=== PATIENT | female | born 2000 | race Two or more races ===

== ENCOUNTER 2025-03-23 13:48 | Inpatient (IN) | payer OTHER ==
[~2025-03-23] VITALS: Ht 162.6 cm; Wt 56.0 kg
[2025-03-23 14:15] VITALS: PULSE 84; RESP 10; O2SAT 99
[2025-03-23] MEDS: SODIUM CHLORIDE 0.9% 1,000 ML IV ONE ×2 (14:15→17:09)
[2025-03-23] MEDS: NALOXONE HCL 0.4 MG/ML VIAL ONE (14:16)
[2025-03-23] MEDS: NALOXONE HCL 1MG/ML 2ML SYRINGE ONE (14:19)
--- NOTE | 2025-03-23 14:26 | ED.PDOC ---
History of Present Illness HPI Comments Patient is a 24-year-old female with medical history of anxiety, depression, PTSD as reported by her spouse was brought to the ED after reported overdose. Patient's spouse reports she left home last night and turned around 9-10 a.m. in the morning and was confused. Patient reports to have taken multiple pills of Zoloft and Christoval. She was confused, lethargic and was brought to the ED for further evaluation. Patient denied any headache, abdominal pain, nausea vomiting, shortness of breath, palpitations. Attestation note: Dr. Caldera: I was the supervising attending for this ED encounter. Please see the resident's notes. I have personally seen and evaluated this patient. I was available for questions and consultations. Differential diagnosis: DDX include CVA, TGA, cerebellar ischemia/infarct, carotid stenosis, Intracranial mass/infection/bleed, encephalopathy, electrolyte abnormality, thyroid disease, hydrocephalus, hypoglycemia, drug toxicity, cardiac arrhythmia, seizure, infection in the elderly, Hyperammonemia., kidney failure., sepsis. MDM: MDM: patient presented with the above HPI.---altered level of consciousness---workup was initiated. patient was found with the above mentioned diagnosis. the following medications were ordered: please refer to order lists of meds and tests obtained by myself Dr. Caldera. Patient ED course and VS have been stabilized. Patient has been reassessed in the ED and remained in a stable condition. Pertinent incidental findings were discussed with the patient and/or family. Patient/family voices understanding and is agreeable with plan. Patient has been observed in the ED adequate length of time to insure improvement/stability. Escalation of care considered: Consideration of escalation to observation or admission Patient was ADMITTED to the medicine team for further evaluation and treatment of their presentation. All the reports of any imaging studies that were ordered by myself were reviewed by myself. Chief Complaint: Ingestion Time Seen by MD: 14:19 Allergies: Coded Allergies: NO KNOWN ALLERGIES (Unverified , 03/23/25) Past Medical History PAST MEDICAL HISTORY: Anxiety, Depression Surgical History: Denies all surgeries DIRECTOR FUNDS DEVELOPMENT History: Denies all DIRECTOR FUNDS DEVELOPMENT Hx Family History Family History: Reviewed,noncontributory to illness Social History Smoker: Unknown Alcohol: Unknown Drugs: Unknown Lives In: Home Constitutional: reports: fatigue EENTM: reports: blurred vision Respiratory: denies: cough, hemoptysis, orthopnea, SOB at rest, shortness of breath, SOB with excertion, stridor, wheezing, others Cardiovascular: denies: chest pain, dizzy spells, diaphoresis, Dyspnea on exertion, edema, irregular heart beat, left arm pain, lightheadedness, palpit ations, PND, syncope, others Gastrointestinal: denies: abdomen distended, abdominal pain, blood streaked b owels, constipated, diarrhea, dysphagia, difficulty swallowing, hematemesis, melena, nausea, poor appetite, poor fluid intake, rectal bleeding, rectal pain, vomiting, others Genitourinary: denies: abnormal vagina bleeding, burning, dyspareunia, dysuria, flank pain, frequency, hematuria, incontinence, pain, , vagina discharge, urgency, others Neurological: denies: dizziness, fainting, headache, left sided numbness, left sided weakness, numbness, paresthesia, pre-existing deficit, right sided numbness, right sided weakness, seizure, speech problems, tingling, tremors, weakness, others Musculoskeletal: denies: back pain, gout, joint pain, joint swelling, muscle pain, muscle stiffness, neck pain, others Integumetry: denies: bruises, change in color, change in hair/nails, dryness, laceration, lesions, lumps, rash, wounds, others Allergic/Immunocompromised: denies: Difficulty Healing, Frequent Infections, Hives, Itching, others Hematologic/Lymphatic: denies: anemia, blood clots, easy bleeding, easy brui sing, swollen glands, others Endocrine: denies: excessive hunger, excessive sweating, excessive thirst, ex cessive urination, flushing, intolerance to cold, intolerance to heat, unexplained weight gain, unexplained weight loss, others Psychiatric: denies: anxiety, bipolar disorder, depression, hopeless, panic disorder, schizophrenia, sleepless, suicidal, others Physical Exam General Appearance: Mild Distress, Thin HEENT: PERRL/EOMI Neck: Full Range of Motion, Non-Tender, Normal Inspection Respiratory: No Accessory Muscle Use, No Respiratory Distress, Normal Breath Sounds Cardiovascular: Bradycardia, No Edema, No JVD, No Murmur Breast Exam: Deferred Gastrointestinal: No Organomegaly, Non Tender, No Pulsatile Mass, Normal Bowel Sounds Genitalia: Deferred Pelvic: Deferred Rectal: Deferred Extremities: Normal inspection, Normal range of motion, Non-tender Neurologic: Alert, No Motor Deficits, No Sensory Deficits Cerebellar Function: Normal Reflexes: NOT DONE Skin: Dry, Pallor Peripheral Pulses: 2+ dorsalis pedis (R); 1+ dorsalis pedis (L); 2+ Radial (R); 1+ Radial (L) Lymphatic: No Adenopathy Was a procedure done? Was a procedure done?: No Differential Dx Considerations may include: drug overdose, toxic encephalopathy X-Ray, Labs, Meds, VS Vital Signs Date Time Temp Pulse Resp B/P (MAP) Pulse Ox O2 Delivery O2 Flow Rate FiO2 03/23/25 16:00 63 10 98/58 (71) 99 03/23/25 14:48 97.6 102 12 153/78 (103) 97 97.6 03/23/25 14:15 84 10 99 Room Air* 0 21 03/23/25 14:14 58 10 92/63 (73) 97 Lab Test 03/23/25 14:45 03/23/25 14:21 Range/Units Urine Color Yellow Yellow Urine Clarity Turbid H Clear Urine pH 6.0 5.0-9.0 Urine Specific Tracy 1.032 1.001-1.035 Urine Protein 1+ H Negative Urine Ketones Negative Negative Urine Blood 3+ H Negative /uL Urine Nitrite Negative Negative Urine Bilirubin Negative Negative Urine Urobilinogen 3 H Negative mg/dL Urine Leukocyte Esterase Trace Negative /uL Urine RBC 476 0 - 4 /hpf Urine Microscopic WBC 2 0-5 /HPF Urine Squamous Epithelial Cells Few <5 /hpf Urine Bacteria Few H None Seen /hpf Urine Mucus Few None Seen Urine Yeast (Budding) Occasional None Seen /hpf Urine Glucose Normal Normal mg/dL Urine Test Negative Negative Urine Opiates Screen Pos NEGATIVE Urine Fentanyl Screen Neg NEGATIVE Urine Barbiturates Screen Neg NEGATIVE Urine Phencyclidine Screen Neg NEGATIVE Urine Amphetamines Screen Neg NEGATIVE Urine Benzodiazepines Screen Pos NEGATIVE Urine Cocaine Screen Pos NEGATIVE Urine Cannabinoids Screen Neg NEGATIVE White Blood Count 6.9 4.4-10.8 10^3/uL Red Blood Count 4.76 4.0-5.20 10^6/uL Hemoglobin 13.2 12.2-16.2 g/dL Hematocrit 40.0 36.0-46.0 % Mean Corpuscular Volume 83.9 80.0-100.0 fL Mean Corpuscular Hemoglobin 27.8 L 28.0-32.0 pg Mean Corpuscular Hemoglobin Concent 33.1 32.0-36.0 g/dL Red Cell Distribution Width 14.1 11.8-14.3 % Platelet Count 208 140-450 10^3/uL Mean Platelet Volume 7.5 6.9-10.8 fL Neutrophils (%) (Auto) 52.8 37.0-80.0 % Lymphocytes (%) (Auto) 35.7 10.0-50.0 % Monocytes (%) (Auto) 8.6 0.0-12.0 % Eosinophils (%) (Auto) 2.6 0.0-7.0 % Basophils (%) (Auto) 0.3 0.0-2.0 % Neutrophils # (Auto) 3.7 1.6-8.6 10 ^3/uL Lymphocytes # (Auto) 2.5 0.4-5.4 10 ^3/uL Monocytes # (Auto) 0.6 0-1.3 10 ^3/uL Eosinophils # (Auto) 0.2 0-0.8 10 ^3/uL Basophils # (Auto) 0 0-0.2 10 ^3/uL Nucleated Red Blood Cells 0.0 % Sodium Level 141 136-145 mmol/L Potassium Level 3.9 3.5-5.1 mmol/L Chloride Level 108 H 98-107 mmol/L Carbon Dioxide Level 27 20-31 mmol/L Anion Gap 6 5-15 Blood Urea Nitrogen 9 9-23 mg/dL Creatinine 0.77 0.550-1.02 mg/dL Glomerular Filtration Rate Calc 109 >90 mL/min BUN/Creatinine Ratio 11.7 10.0-20.0 Serum Glucose 83 74-106 mg/dL Lactic Acid Level 0.9 0.4-2.0 mmol/L Calcium Level 9.8 8.7-10.4 mg/dL Magnesium Level 2.0 1.6-2.6 mg/dL Total Bilirubin 0.3 0.2-1.0 mg/dL Aspartate Amino Transferase (AST) 22 13-40 U/L Alanine Aminotransferase (ALT) 12 7-40 U/L Alkaline Phosphatase 60 46-116 U/L Troponin I High Sensitivity < 3 L </=34 ng/L Total Protein 6.5 5.7-8.2 g/dL Albumin 4.4 3.2-4.8 g/dL Acetaminophen Level 4.0 L 10.0-20.0 UG/ML Eulonia Level Pending Plasma/Serum Blood Alcohol < 3.0 <10 mg/dL Current Medications Medications (Trade) Dose Ordered Sig/Daniel Route Start Time Stop Time Status Last Admin Sodium Chloride 1,000 ml @ 1,000 mls/hr Q1H ONCE IV 03/23/25 14:15 03/23/25 15:20 DC 03/23/25 14:15 Naloxone HCl (Narcan) 2 mg ONCE ONCE IV 03/23/25 14:19 03/23/25 15:20 DC 03/23/25 16:11 Ceftriaxone Sodium 50 ml @ 100 mls/hr ONCE ONCE IV 03/23/25 17:00 03/23/25 17:29 DC 03/23/25 17:23 Sodium Chloride 1,000 ml @ 1,000 mls/hr Q1H ONCE IV 03/23/25 17:00 03/23/25 17:59 DC 03/23/25 17:09 Patient is a 24-year-old female was brought to the ED by her spouse after she was confused and lethargic. Her spouse reported that last night they had argument and she went out and return in the morning in altered mental status. Patient reportedly took multiple pills of a medication, bottle of hydroxyzine was brought on seen by her spouse. Urine drug screen was positive for cocaine, opiates, benzodiazepines. Blood alcohol level were within normal limits. Head CT did not show any acute intracranial abnormality, chest x-ray was normal. On arrival to the ER patient's GCS was 13 and she was given 1 L of IV fluids and put on a conveyor monitor that showed sinus bradycardia 50-60 beats per minute. Patient was lethargic and somnolent. Spouse denied patient to be taking any drugs regularly. Patient is on lithium for mood stabilisation for her mood disoder but she adamantly denied to overdose on lithium. X-Ray, Labs, Meds, VS Comment [address] [address] Ph: [phone] DIAGNOSTIC IMAGING Diagnostic Imaging Report : [id number] Signed PATIENT: NICK SIDDIQIACCT: [id number] UNIT: [id number] : 2000 LOC: ER ROOM / BED: / AGE / SEX: 24 / F ADM STATUS: REG ER SERVICE 1506 ORDERING PHYSICIAN: LEXA HUITRON RESIDENT PROCEDURE(s): HWOCT - HEAD WITHOUT CONTRAST REASON: ALOC ORDER NUMBER(s): [id number], ACCESSION NUMBER(s): [id number] EXAM: CT HEAD WITHOUT CONTRAST HISTORY: ALOC COMPARISON: None TECHNIQUE: Noncontrast axial CT images of the head were performed. Sagittal and coronal reformatted images were obtained. This CT exam was performed using 1 or more of the following dose reduction techniques: Automated exposure control, adjustment of the mA and/or kv according to patient size, or the use of iterative reconstruction techniques. Radiation Dose: CTDI volume is 53.44 mGy. Dose-length product is 965.35 mGy*cm FINDINGS: No intracranial hemorrhage, mass, midline shift, hydrocephalus, or evidence of acute large vessel infarct. The partially-visualized paranasal sinuses are clear. The bilateral mastoid air cells and middle ear spaces are clear. No cranial fracture or scalp edema. IMPRESSION: No acute intracranial process. ATED BY: BRUNO FORD MD DICTATED DATE/TIME: 03/23/251546 SIGNED BY: BRUNO FORD MD SIGNED DATE/TIME: 03/23/251546 CC: Time of 1ST Reevaluation: 17:12 Reevaluation 1ST: Unchanged Patient Education/Counseling: Diagnosis, Treatment Family Education/Counseling: Diagnosis, Treatment SEPSIS Sepsis Screen Physician Orders Music Manager (03/23/25 ) Chest Portable (03/23/25 14:15) Electrocardigram (03/23/25 14:15) Head Without Contrast (03/23/25 15:06) * Station Installer And Repairer Consult (03/23/25 ) Eulonia (Eskalith) (03/23/25 17:35) Vital Signs Date Time Temp Pulse Resp B/P (MAP) Pulse Ox O2 Delivery O2 Flow Rate FiO2 03/23/25 16:00 63 10 98/58 (71) 99 03/23/25 14:48 97.6 102 12 153/78 (103) 97 97.6 03/23/25 14:15 84 10 99 Room Air* 0 21 03/23/25 14:14 58 10 92/63 (73) 97 Laboratory Tests Test 03/23/25 14:21 Lactic Acid Level 0.9 mmol/L (0.4-2.0) White Blood Count 6.9 10^3/uL (4.4-10.8) Medications Medications Dose Ordered Sig/Daniel Route Start Time Stop Time Status Last Admin Dose Admin Ceftriaxone Sodium 50 ml @ 100 mls/hr ONCE ONCE IV 03/23/25 17:00 03/23/25 17:29 DC 03/23/25 17:23 Naloxone HCl 2 mg ONCE ONCE IV 03/23/25 14:19 03/23/25 15:20 DC 03/23/25 16:11 Sodium Chloride 1,000 ml @ 1,000 mls/hr Q1H ONCE IV 03/23/25 14:15 03/23/25 15:20 DC 03/23/25 14:15 Sodium Chloride 1,000 ml @ 1,000 mls/hr Q1H ONCE IV 03/23/25 17:00 03/23/25 17:59 DC 03/23/25 17:09 Departure 1 Departure Time of Disposition: 16:35 Impression: Primary Impression: Toxic metabolic encephalopathy Additional Impressions: Drug overdose Polysubstance abuse Cocaine abuse UTI (urinary tract infection) Altered level of consciousness Disposition: ADMITTED INPATIENT Admit to: [facility] Condition: Guarded Discharged With: Self Critical Care Note Critical Care Time?: No Stability Stability form required: No Heart Score Heart Score: Heart Score Response (Comments) Value History N/A 0 EKG N/A 0 Age N/A 0 Risk Factors N/A 0 Troponin N/A 0 Total 0 LEXA HUITRON RESIDENT Mar 23, 2025 14:26 JOANNE CALDERA DO Mar 23, 2025 16:53
[2025-03-23 14:39] LABS: Hematocrit 40.0 % (36.0-46.0); Hemoglobin 13.2 g/dL (12.2-16.2); Mean Corpuscular Hemoglobin 27.8 pg (28.0-32.0); Mean Corpuscular Volume 83.9 fL (80.0-100.0); Nucleated Red Blood Cells % 0.0 %
[2025-03-23 14:56] LABS: Alanine Aminotransferase 12 U/L (7-40); Albumin 4.4 g/dL (3.2-4.8); Alkaline Phosphatase 60 U/L (46-116); Anion Gap 6 (5-15); BUN/Creatinine Ratio 11.7 (10.0-20.0); Bilirubin, Total 0.3 mg/dL (0.2-1.0); Blood Urea Nitrogen 9 mg/dL (9-23); Calcium 9.8 mg/dL (8.7-10.4); Carbon Dioxide 27 mmol/L (20-31); Chloride 108 mmol/L (98-107); Glucose 83 mg/dL (74-106); Magnesium 2.0 mg/dL (1.6-2.6); Potassium 3.9 mmol/L (3.5-5.1); Sodium 141 mmol/L (136-145); Total Protein 6.5 g/dL (5.7-8.2)
[2025-03-23 15:08] LABS: Urine Budding Yeast OCCASIONAL /hpf (None Seen); Urine Protein, UAD 1+ (Negative)
[2025-03-23 15:17] LABS: Amphetamine Screen, Urine Neg (NEGATIVE); Barbiturate Scree,Urine Neg (NEGATIVE); Benzodiazephine Screen, Urine Pos (NEGATIVE)
[2025-03-23 15:18] LABS: Cannabinoid Screen, Urine Neg (NEGATIVE); Cocaine Screen, Urine Pos (NEGATIVE); Opiate Scree,Urine Pos (NEGATIVE); Phencyclidine Screen, Urine Neg (NEGATIVE)
--- NOTE | 2025-03-23 15:44 | DVH ---
EXAM: XY CHEST PORTABLE HISTORY: overdose, altered. COMPARISON: None TECHNIQUE: Portable upright AP view of the chest was performed. FINDINGS: No pneumothorax, consolidative infiltrates, or pulmonary edema. The heart is not enlarged. Tubing ove rlies the left chest, possibly due to HELICOPTER MECHANIC shunt catheter. There is slight thoracic levoscoliosis. IMPRESSION: No acute intrathoracic process.
--- NOTE | 2025-03-23 15:50 | DVH ---
EXAM: CT HEAD WITHOUT CONTRAST HISTORY: ALOC COMPARISON: None TECHNIQUE: Noncontrast axial CT images of the head were performed. Sagittal and coronal reformatted i mages were obtained. This CT exam was performed using 1 or more of the following dose reduction techn iques: Automated exposure control, adjustment of the mA and/or kv according to patient size, or the u se of iterative reconstruction techniques. Radiation Dose: CTDI volume is 53.44 mGy. Dose-length product is 965.35 mGy*cm FINDINGS: No intracranial hemorrhage, mass, midline shift, hydrocephalus, or evidence of acute large vessel inf arct. The partially-visualized paranasal sinuses are clear. The bilateral mastoid air cells and middl e ear spaces are clear. No cranial fracture or scalp edema. IMPRESSION: No acute intracranial process.
[2025-03-23] MEDS: NALOXONE HCL 1MG/ML 2ML SYRINGE IV ONE ×2 (16:11→18:48)
[2025-03-23] MEDS: cefTRIAXone 1GM/50ML D5W 50 ML IV ONE (17:23)
[2025-03-23] MEDS ORDERED: ACETAMINOPHEN 325 MG TAB PO PRN (20:30)
[2025-03-23] MEDS ORDERED: DOCUSATE SOD 100 MG CAP PO PRN (20:30)
[2025-03-23] MEDS ORDERED: ONDANSETRON HCL 4 MG/2 ML VIAL IV PRN (20:30)
--- NOTE | 2025-03-23 20:49 | DVHHP2 ---
History of Present Illness Reason for Visit: Toxic metabolic encephalopathy History of Present Illness The patient is a 24-year-old female with past medical history of anxiety, depression, and PTSD who presented to [facility] ED for evaluation of drug overdose. Patient reports to have taken multiple pills of Zoloft and [place], remains confused, lethargic and was brought to the ED for further evaluation. Patient was seen and evaluated in the ED, laboratory data shows WBC 6.9, platelets 208, sodium 141, potassium 3.9, BUN 9, creatinine 0.77, glucose 83, calcium 9.8, troponin < 3, blood pressure 99/54, heart rate 62, temperature 98.6 F, O2 saturation 98% on room air. Urinalysis positive for urinary tract infection, urine toxicology positive for opiates, positive for cocaine. Head CT showed no acute intracranial process. Please see medication orders section in the computer. On my assessment, patient denied chest pain, no headache, no dizziness, no diaphoresis, no shortness of breath, no nausea, no vomiting, no fever, no chills. Patient was admitted for further evaluation and medical management. Past Medical History Anxiety, Depression, PTSD Past Surgical History Denies all surgeries Family History Reviewed, noncontributory to the management of this case. Past Social History The patient lives at home, denies smoking, alcohol or illicit drugs abuse. Review of Systems Constitutional: Yes: Weakness; No: Fever, Chills, Sweats, Malaise, Other Eyes: No: Pain, Vision change, Conjunctivae inflammation, Eyelid inflammation, Other, Redness ENT: No: Ear pain, Ear discharge, Nose pain, Nose discharge, Nose congestion, Mouth pain, Mouth swelling, Throat pain, Throat swelling, Other Respiratory: No: Cough, Dry, Shortness of breath, SOB with excertion, Wheezing, Hemoptysis, Pleuritic Pain, Sputum, Wheezing, Other Cardiovascular: No: Chest Pain, Palpitations, Orthopnea, Paroxysmal Noc. Dyspnea, Edema, Lt Headedness, Other Gastrointestinal: No: Nausea, Vomiting, Abdominal Pain, Diarrhea, Constipation, Melena, Hematochezia, Other Genitourinary: No Dysuria, No Frequency, No Incontinence, No Hematuria, No Retention, No Other Musculoskeletal: No: other, neck pain, shoulder pain, arm pain, back pain, hand pain, leg pain, foot pain Skin: No: Rash, Lesions, Jaundice, Bruising, Other Neurological: No: Weakness, Numbness, Incoordination, Change in speech, Confusion, Seizures, Other Allergies: Coded Allergies: NO KNOWN ALLERGIES (Unverified , 03/23/25) Medications Current Medications Medications Dose Ordered Sig/Daniel Route Start Time Stop Time Status Last Admin Dose Admin Ceftriaxone Sodium 50 ml @ 100 mls/hr DAILY@09 IV 03/24/25 09:00 UNV Sodium Chloride 10 ml Q8HR IV 03/23/25 22:00 UNV Ondansetron HCl 4 mg Q4HP PRN IV 03/23/25 20:30 UNV Docusate Sodium 100 mg BIDPRN PRN PO 03/23/25 20:30 UNV Acetaminophen 650 mg Q6HP PRN PO 03/23/25 20:30 UNV Exam Vital Signs Vital Signs Date Time Temp Pulse Resp B/P (MAP) Pulse Ox O2 Delivery O2 Flow Rate FiO2 03/23/25 18:00 98.6 61 10 99/54 (69) 98 98.6 03/23/25 14:15 Room Air* 0 21 General Appearance: Alert, Oriented X3, Cooperative, No acute distress HEENT: Atraumatic, PERRLA, EOMI, Mucous membr. moist/pink Respiratory: Normal air movement Cardiovascular: Regular rate, Normal S1, Normal S2, No murmurs Abdominal: Normal bowel sounds, Soft, No tenderness, No hepatospenomegaly, No masses Extremities: No clubbing, No cyanosis, No edema, Normal pulses, No tenderness/swelling Skin: No rashes, No significant lesion Neuro: Normal speech, Normal tone, Sensation intact, Cranial nerves 3-12 NL, Reflexes 2+, Other (RN) Psych/Mental Status: Mental status NL, Mood NL Labs/Xrays Labs Test 03/23/25 14:45 03/23/25 14:21 Range/Units Urine Color Yellow Yellow Urine Clarity Turbid H Clear Urine pH 6.0 5.0-9.0 Urine Specific [place] 1.032 1.001-1.035 Urine Protein 1+ H Negative Urine Ketones Negative Negative Urine Blood 3+ H Negative /uL Urine Nitrite Negative Negative Urine Bilirubin Negative Negative Urine Urobilinogen 3 H Negative mg/dL Urine Leukocyte Esterase Trace Negative /uL Urine RBC 476 0 - 4 /hpf Urine Microscopic WBC 2 0-5 /HPF Urine Squamous Epithelial Cells Few <5 /hpf Urine Bacteria Few H None Seen /hpf Urine Mucus Few None Seen Urine Yeast (Budding) Occasional None Seen /hpf Urine Glucose Normal Normal mg/dL Urine Test Negative Negative Urine Opiates Screen Pos NEGATIVE Urine Fentanyl Screen Neg NEGATIVE Urine Barbiturates Screen Neg NEGATIVE Urine Phencyclidine Screen Neg NEGATIVE Urine Amphetamines Screen Neg NEGATIVE Urine Benzodiazepines Screen Pos NEGATIVE Urine Cocaine Screen Pos NEGATIVE Urine Cannabinoids Screen Neg NEGATIVE White Blood Count 6.9 4.4-10.8 10^3/uL Red Blood Count 4.76 4.0-5.20 10^6/uL Hemoglobin 13.2 12.2-16.2 g/dL Hematocrit 40.0 36.0-46.0 % Mean Corpuscular Volume 83.9 80.0-100.0 fL Mean Corpuscular Hemoglobin 27.8 L 28.0-32.0 pg Mean Corpuscular Hemoglobin Concent 33.1 32.0-36.0 g/dL Red Cell Distribution Width 14.1 11.8-14.3 % Platelet Count 208 140-450 10^3/uL Mean Platelet Volume 7.5 6.9-10.8 fL Neutrophils (%) (Auto) 52.8 37.0-80.0 % Lymphocytes (%) (Auto) 35.7 10.0-50.0 % Monocytes (%) (Auto) 8.6 0.0-12.0 % Eosinophils (%) (Auto) 2.6 0.0-7.0 % Basophils (%) (Auto) 0.3 0.0-2.0 % Neutrophils # (Auto) 3.7 1.6-8.6 10 ^3/uL Lymphocytes # (Auto) 2.5 0.4-5.4 10 ^3/uL Monocytes # (Auto) 0.6 0-1.3 10 ^3/uL Eosinophils # (Auto) 0.2 0-0.8 10 ^3/uL Basophils # (Auto) 0 0-0.2 10 ^3/uL Nucleated Red Blood Cells 0.0 % Sodium Level 141 136-145 mmol/L Potassium Level 3.9 3.5-5.1 mmol/L Chloride Level 108 H 98-107 mmol/L Carbon Dioxide Level 27 20-31 mmol/L Anion Gap 6 5-15 Blood Urea Nitrogen 9 9-23 mg/dL Creatinine 0.77 0.550-1.02 mg/dL Glomerular Filtration Rate Calc 109 >90 mL/min BUN/Creatinine Ratio 11.7 10.0-20.0 Serum Glucose 83 74-106 mg/dL Lactic Acid Level 0.9 0.4-2.0 mmol/L Calcium Level 9.8 8.7-10.4 mg/dL Magnesium Level 2.0 1.6-2.6 mg/dL Total Bilirubin 0.3 0.2-1.0 mg/dL Aspartate Amino Transferase (AST) 22 13-40 U/L Alanine Aminotransferase (ALT) 12 7-40 U/L Alkaline Phosphatase 60 46-116 U/L Troponin I High Sensitivity < 3 L </=34 ng/L Total Protein 6.5 5.7-8.2 g/dL Albumin 4.4 3.2-4.8 g/dL Acetaminophen Level 4.0 L 10.0-20.0 UG/ML Plasma/Serum Blood Alcohol < 3.0 <10 mg/dL PATIENT: NICK SIDDIQIACCT: [id number] UNIT: [id number] : 2000 LOC: ER ROOM / BED: / AGE / SEX: 24 / F ADM STATUS: REG ER SERVICE 1506 ORDERING PHYSICIAN: LEXA HUITRON RESIDENT PROCEDURE(s): HWOCT - HEAD WITHOUT CONTRAST REASON: ALOC ORDER NUMBER(s): [id number], ACCESSION NUMBER(s): [id number] EXAM: CT HEAD WITHOUT CONTRAST HISTORY: ALOC COMPARISON: None TECHNIQUE: Noncontrast axial CT images of the head were performed. Sagittal and coronal reformatted images were obtained. This CT exam was performed using 1 or more of the following dose reduction techniques: Automated exposure control, adjustment of the mA and/or kv according to patient size, or the use of iterative reconstruction techniques. Radiation Dose: CTDI volume is 53.44 mGy. Dose-length product is 965.35 mGy*cm FINDINGS: No intracranial hemorrhage, mass, midline shift, hydrocephalus, or evidence of acute large vessel infarct. The partially-visualized paranasal sinuses are clear. The bilateral mastoid air cells and middle ear spaces are clear. No cranial fracture or scalp edema. IMPRESSION: No acute intracranial process. ORDERING PHYSICIAN: JOANNE CALDERA DO PROCEDURE(s): CXRP - CHEST PORTABLE REASON: overdose, altered. ORDER NUMBER(s): [id number], ACCESSION NUMBER(s): [id number] EXAM: XY CHEST PORTABLE HISTORY: overdose, altered. COMPARISON: None TECHNIQUE: Portable upright AP view of the chest was performed. FINDINGS: No pneumothorax, consolidative infiltrates, or pulmonary edema. The heart is not enlarged. Tubing overlies the left chest, possibly due to GRIP shunt catheter. There is slight thoracic levoscoliosis. IMPRESSION: No acute intrathoracic process. SEPSIS Sepsis Screen Date sepsis recognized/suspect: Mar 23, 2025 Time Sepsis recognized/suspect: 1414 Recent Procedure: No On Antibiotic Therapy: No Respiratory Rate >20: No Heart Rate >90: No Temp<36 C (96.8 F) or >38.3 C: No SBP <90 or MAP <65 mmHG: No New Acute Mental Status Change: Yes Is the patient on CPAP, BIPAP,: No Physician Orders Change Advisor (03/23/25 ) Chest Portable (03/23/25 14:15) Electrocardigram (03/23/25 14:15) Head Without Contrast (03/23/25 15:06) * Certified Master Safecracker Consult (03/23/25 ) Caroleen (Eskalith) (03/23/25 17:35) Urine Bacterial Culture (03/23/25 20:22) Ceftriaxone 1gm/50ml D5w (Rocephin) (03/24/25 09:00) Allergies (03/23/25 20:22) Code Status (03/23/25 20:22) Sodium Chloride Lock (Saline Lock Ns) (03/23/25 22:00) Oxygen Per Hour (03/23/25 20:22) Ondansetron Hcl (Zofran) (03/23/25 20:30) Docusate Sodium Capsule (Colace Capsule) (03/23/25 20:30) Fall Risk Precautions In Place QSHIFT (03/23/25 20:22) Complete Blood Count (03/24/25 04:00) Comprehensive Metabolic Panel (03/24/25 04:00) Cardiac Diet-2gna,Lofat,Lochol (03/24/25 Breakfast) Condition: Serious (03/23/25 20:22) Acetaminophen Tablet (Tylenol Tablet) (03/23/25 20:30) Maintain Bed Rest (03/23/25 20:22) Sequential Compression Device (03/23/25 ) Vital Signs Date Time Temp Pulse Resp B/P (MAP) Pulse Ox O2 Delivery O2 Flow Rate FiO2 03/23/25 18:00 98.6 61 10 99/54 (69) 98 98.6 03/23/25 16:00 63 10 98/58 (71) 99 03/23/25 14:48 97.6 102 12 153/78 (103) 97 97.6 03/23/25 14:15 84 10 99 Room Air* 0 21 03/23/25 14:14 58 10 92/63 (73) 97 Laboratory Tests Test 03/23/25 14:21 Lactic Acid Level 0.9 mmol/L (0.4-2.0) White Blood Count 6.9 10^3/uL (4.4-10.8) Medications Medications Dose Ordered Sig/Daniel Route Start Time Stop Time Status Last Admin Dose Admin Ceftriaxone Sodium 50 ml @ 100 mls/hr ONCE ONCE IV 03/23/25 17:00 03/23/25 17:29 DC 03/23/25 17:23 100 MLS/HR Naloxone HCl 2 mg ONCE ONCE IV 03/23/25 14:19 03/23/25 15:20 DC 03/23/25 16:11 2 MG Naloxone HCl 2 mg ONCE ONCE IV 03/23/25 18:15 03/23/25 18:39 DC 03/23/25 18:48 2 MG Sodium Chloride 1,000 ml @ 1,000 mls/hr Q1H ONCE IV 03/23/25 14:15 03/23/25 15:20 DC 03/23/25 14:15 1,000 MLS/HR Sodium Chloride 1,000 ml @ 1,000 mls/hr Q1H ONCE IV 03/23/25 17:00 03/23/25 17:59 DC 03/23/25 17:09 1,000 MLS/HR Assessment/Plan Assessment/Plan Toxic metabolic encephalopathy Drug overdose Polysubstance abuse Cocaine abuse UTI (urinary tract infection) Altered level of consciousness Plan 1. Admit to telemetry unit 2. Breathing treatment 3. Pain control management 4. IV antibiotic management 5. Management of fluids and electrolytes 6. Consultation for hospitalist 7. Diagnostic test head CT 8. DVT prophylaxis on SCDs 9. Repeat labs CBC, CMP in a.m. 10. Home medication reviewed and reconciled 11. Continue with current medical management 12. Treatment plan discussed with patient and RN. Patient verbalized understanding. Plan discussed with: Patient, Other (RN) My Orders Orders - VADIM CALDERON DNP Procedure Category Date Status Time Urine Bacterial ZOË 03/23/25 In Process Culture 20:22 Ceftriaxone 1gm/50ml PHA 03/24/25 Logged D5w (Rocephin) 09:00 Allergies ADELA 03/23/25 In Process 20:22 Code Status CODE 03/23/25 Transmitted 20:22 Sodium Chloride Lock PHA 03/23/25 Logged (Saline Lock Ns) 22:00 Oxygen Per Hour RT 03/23/25 Transmitted 20:22 Ondansetron Hcl PHA 03/23/25 Logged (Zofran) 20:30 Docusate Sodium PHA 03/23/25 Logged Capsule (Colace 20:30 Fall Risk Precautions ADELA 03/23/[address] 20:22 Complete Blood Count LAB 03/24/25 Verified 04:00 Comprehensive LAB 03/24/25 Verified Metabolic Panel 04:00 Cardiac DIET 03/24/25 Transmitted Diet-2gna,Lofat,Lochol Breakfast Condition: Serious DAELA 03/23/25 In Process 20:22 Acetaminophen Tablet PHA 03/23/25 Logged (Tylenol Tablet) 20:30 Maintain Bed Rest ADELA 03/23/25 In Process 20:22 Sequential ADELA 03/23/25 In Process Compression Device Problem List: (1) Toxic metabolic encephalopathy (2) Drug overdose (3) Polysubstance abuse (4) Cocaine abuse (5) UTI (urinary tract infection) (6) Altered level of consciousness Date of Service: Mar 23, 2025 Billing Provider: VADIM CALDERON DNP Common Visit Codes: [id number] INP/OBS CARE (HIGH) VADIM CALDERON DNP Mar 23, 2025 20:48
[2025-03-23] MEDS ORDERED: MORPHINE SULFATE INJ 2 MG/ml SYRG IV PRN (21:00)
[2025-03-23] MEDS ORDERED: NITROGLYCERIN 0.4 MG SL TAB SL PRN (21:00)
[2025-03-23] MEDS: SODIUM CHLOR 0.9% PF (SALINE LOCK) 10ML VIAL/SYR IV SCH (21:32)
[2025-03-23 22:39] VITALS: PULSE 80; RESP 18; O2SAT 96
[2025-03-23] MEDS ORDERED: TRAZ-228 PO (22:51)
[2025-03-23] MEDS ORDERED: LITH300T5 PO (22:51)
[2025-03-23 23:30] VITALS: BP 104/68; PULSE 78; RESP 17; TEMP 97.6; O2SAT 98
[2025-03-24 05:00] VITALS: BP 105/64; PULSE 70; RESP 18; TEMP 97.8; O2SAT 97
[2025-03-24 07:19] LABS: Hematocrit 39.1 % (36.0-46.0); Hemoglobin 13.1 g/dL (12.2-16.2); Mean Corpuscular Hemoglobin 28.2 pg (28.0-32.0); Mean Corpuscular Volume 84.2 fL (80.0-100.0); Nucleated Red Blood Cells % 0.2 %
[2025-03-24 07:35] LABS: Albumin 3.6 g/dL (3.2-4.8); Alkaline Phosphatase 48 U/L (46-116); Anion Gap 8 (5-15); BUN/Creatinine Ratio 9.8 (10.0-20.0); Bilirubin, Total 0.4 mg/dL (0.2-1.0); Calcium 8.8 mg/dL (8.7-10.4); Carbon Dioxide 23 mmol/L (20-31); Glucose 86 mg/dL (74-106); Sodium 142 mmol/L (136-145)
[2025-03-24 07:38] LABS: Alanine Aminotransferase 9 U/L (7-40); Blood Urea Nitrogen 8 mg/dL (9-23); Chloride 111 mmol/L (98-107); Potassium 3.5 mmol/L (3.5-5.1); Total Protein 5.6 g/dL (5.7-8.2)
[2025-03-24 08:00] VITALS: PULSE 56; RESP 18; O2SAT 98
[2025-03-24 09:29] VITALS: BP 116/78; PULSE 71; RESP 16; TEMP 98.3; O2SAT 98
[2025-03-24] MEDS: cefTRIAXone 1GM/50ML D5W 50 ML IV SCH (10:29)
[2025-03-24 13:35] VITALS: BP 129/84; PULSE 61; RESP 16; TEMP 97.9; O2SAT 100
[2025-03-24] MEDS ORDERED: BACDST PO (15:29)
--- NOTE | 2025-03-24 15:54 | DVHDS2 ---
Discharge Summary Date of Admission Mar 23, 2025 at 20:48 Date of Discharge: Mar 24, 2025 Labs/Diagnostic Data: Laboratory Results Test 03/24/25 06:14 03/23/25 23:11 03/23/25 14:45 03/23/25 14:21 White Blood Count 8.1 10^3/uL (4.4-10.8) Red Blood Count 4.65 10^6/uL (4.0-5.20) Hemoglobin 13.1 g/dL (12.2-16.2) Hematocrit 39.1 % (36.0-46.0) Mean Corpuscular Volume 84.2 fL (80.0-100.0) Mean Corpuscular Hemoglobin 28.2 pg (28.0-32.0) Mean Corpuscular Hemoglobin Concent 33.5 g/dL (32.0-36.0) Red Cell Distribution Width 14.3 % (11.8-14.3) Platelet Count 226 10^3/uL (140-450) Mean Platelet Volume 7.8 fL (6.9-10.8) Neutrophils (%) (Auto) 57.0 % (37.0-80.0) Lymphocytes (%) (Auto) 33.8 % (10.0-50.0) Monocytes (%) (Auto) 6.1 % (0.0-12.0) Eosinophils (%) (Auto) 2.8 % (0.0-7.0) Basophils (%) (Auto) 0.3 % (0.0-2.0) Neutrophils # (Auto) 4.6 10 ^3/uL (1.6-8.6) Lymphocytes # (Auto) 2.7 10 ^3/uL (0.4-5.4) Monocytes # (Auto) 0.5 10 ^3/uL (0-1.3) Eosinophils # (Auto) 0.2 10 ^3/uL (0-0.8) Basophils # (Auto) 0 10 ^3/uL (0-0.2) Nucleated Red Blood Cells 0.2 % Sodium Level 142 mmol/L (136-145) Potassium Level 3.5 mmol/L (3.5-5.1) Chloride Level 111 mmol/L (98-107) Carbon Dioxide Level 23 mmol/L (20-31) Anion Gap 8 (5-15) Blood Urea Nitrogen 8 mg/dL (9-23) Creatinine 0.82 mg/dL (0.550-1.02) Glomerular Filtration Rate Calc 101 mL/min (>90) BUN/Creatinine Ratio 9.8 (10.0-20.0) Serum Glucose 86 mg/dL (74-106) Calcium Level 8.8 mg/dL (8.7-10.4) Total Bilirubin 0.4 mg/dL (0.2-1.0) Aspartate Amino Transferase (AST) 17 U/L (13-40) Alanine Aminotransferase (ALT) 9 U/L (7-40) Alkaline Phosphatase 48 U/L (46-116) Total Protein 5.6 g/dL (5.7-8.2) Albumin 3.6 g/dL (3.2-4.8) Acetaminophen Level < 2.0 UG/ML (10.0-20.0) Urine Color Yellow (Yellow) Urine Clarity Turbid (Clear) Urine pH 6.0 (5.0-9.0) Urine Specific [place] 1.032 (1.001-1.035) Urine Protein 1+ (Negative) Urine Ketones Negative (Negative) Urine Blood 3+ /uL (Negative) Urine Nitrite Negative (Negative) Urine Bilirubin Negative (Negative) Urine Urobilinogen 3 mg/dL (Negative) Urine Leukocyte Esterase Trace /uL (Negative) Urine RBC 476 /hpf (0 - 4) Urine Microscopic WBC 2 /HPF (0-5) Urine Squamous Epithelial Cells Few /hpf (<5) Urine Bacteria Few /hpf (None Seen) Urine Mucus Few (None Seen) Urine Yeast (Budding) Occasional /hpf (None Urine Glucose Normal mg/dL (Normal) Urine Test Negative (Negative) Urine Opiates Screen Pos (NEGATIVE) Urine Fentanyl Screen Neg (NEGATIVE) Urine Barbiturates Screen Neg (NEGATIVE) Urine Phencyclidine Screen Neg (NEGATIVE) Urine Amphetamines Screen Neg (NEGATIVE) Urine Benzodiazepines Screen Pos (NEGATIVE) Urine Cocaine Screen Pos (NEGATIVE) Urine Cannabinoids Screen Neg (NEGATIVE) Lactic Acid Level 0.9 mmol/L (0.4-2.0) Magnesium Level 2.0 mg/dL (1.6-2.6) Troponin I High Sensitivity < 3 ng/L (</=34) [place] Level <0.1 mmol/L (0.5-1.2) Plasma/Serum Blood Alcohol < 3.0 mg/dL (<10) Other Laboratory Tests 03/24/25 06:14 Brief Hx & Hospital Course: 24-year-old female with past medical history of anxiety, depression, and PTSD who presented to [facility] ED for evaluation of drug overdose. Patient reports to have taken multiple pills of Zoloft and [place], remains confused, lethargic and was brought to the ED for further evaluation. Patient was seen and evaluated in the ED, laboratory data shows WBC 6.9, platelets 208, sodium 141, potassium 3.9, BUN 9, creatinine 0.77, glucose 83, calcium 9.8, troponin < 3, blood pressure 99/54, heart rate 62, temperature 98.6 F, O2 saturation 98% on room air. Urinalysis positive for urinary tract infection, urine toxicology positive for opiates, positive for cocaine. Head CT showed no acute intracranial process. Please see medication orders section in the computer. On my assessment, patient denied chest pain, no headache, no dizziness, no diaphoresis, no shortness of breath, no nausea, no vomiting, no fever, no chills. Patient was admitted for further evaluation and medical management. Oriented x3 not suicidal Condition at Discharge: Good Final Diagnosis/Problems List opioid intoxication Discharge Disposition: Home Discharge Instruct/Medications Diet: Regular Activity: No Restrictions, As Tolerated Follow Up/Referral: PCP in 7 days Medications: home medications Scheduled [place] Carbonate ([place] Carbonate), 1 TAB PO TID, (Reported) Sulfamethoxazole W/Trimethopri (Bactrim Ds Tablet), 1 TAB PO BID Trazodone Hcl (Trazodone Hcl), 1 TAB PO QPM, (Reported) Discharge Statement: "Patient was advised to return to the ER or call 911 if any headaches, dizziness, shortness of breath, chest pain, abdominal pain, bleeding, fevers, or worsening of medical condition. Patient was counseled about treatment plan, medications, possible side effects, patientverbalized understanding. All questions were answered to the best of my ability. This discharge took greater then 30 minutes in planning, reviewing documentation, counseling the patient, and discussing with other team members." ASSESSMENT ASSESSMENT Assessment opioid intoxication Date of Service: Mar 24, 2025 Billing Provider: ELÍAS CR MD Common Visit Codes: [id number] DISCH DAY >30min ELÍAS CR MD Mar 24, 2025 15:54
== END 2025-03-24 16:20 | disposition home or self-care (01) | DRG 812 ==
LOC: ER 13:48 → OVERFLOW 20:48 → TELE-EAST 22:31
PROVIDERS: ADMIT Nurse Practitioner Family; ATTEND Nurse Practitioner Family
DX: T40.601A Poisoning by unspecified narcotics, accidental (unintentional), initial encounter (principal); G92.8 Other toxic encephalopathy; F11.129 Opioid abuse with intoxication, unspecified; F14.10 Cocaine abuse, uncomplicated; N39.0 Urinary tract infection, site not specified; F43.10 Post-traumatic stress disorder, unspecified; F41.9 Anxiety disorder, unspecified; F32.A Depression, unspecified; Y92.89 Other specified places as the place of occurrence of the external cause; Z79.899 Other long term (current) drug therapy
CPT/HCPCS: 36415; 70450; 71045; 80053; 80178; 80307; 80320; 80329; 81001; 81025; 83605; 83735; 84484; 85025; 87086; 96365; G0378

== ENCOUNTER 2025-07-10 07:41 | Emergency (ER) | payer MEDICAID ==
[~2025-07-10] VITALS: Ht 162.6 cm; Wt 54.4 kg
[~2025-07-10 07:41] MED LIST: BACDST PO; LITH300T5 PO; TRAZ-228 PO
--- NOTE | 2025-07-10 08:21 | ED.PDOC ---
[place]. trauma (HPI) HPI Comments 25-year-old female presents to the ER with no prior MHx associated with a chief complaint of a head injury. Patient reports that she was need in the left temporal while jumping on a trampoline on Wednesday of 07/07/2025. After the incident the patient had a sudden onset of blurry vision which subsided, but pain worsens with the other symptoms. The patient states on having lightheadedness, left eye pain, left ear pain, TMJ pain with the movement, nausea and currently has a 10/10 on the pain scale. Denies any other symptoms at this time. Started Admits of water per day Denies fever, chills, night sweats Denies persistent nausea Denies vomiting Denies thunderclap headache Denies photophobia, phonophobia Denies head trauma around the time headache started Denies family history of brain issues persistent headaches Denies taking any blood thinner medication Denies vision/hearing changes Denies focal loss of strength/sensation or changes in speech Exam flags that require neuroimaging Sudden/rapid onset (less than 1 minute to peak) Exertional onset Trauma Worst headache of my life First severe headache > 50 years of age Fever, neck stiffness, abnormal neuro exam Headache worsens with Valsalva/cough/recumbent position (increased ICP) Chief Complaint: Head Injury Time Seen by MD: 08:15 Reviewed notes: Nurses Notes, Medications, Allergies Allergies: Coded Allergies: NO KNOWN ALLERGIES (Unverified , 03/23/25) Home Meds Active Scripts Sulfamethoxazole W/Trimethopri (Bactrim Ds Tablet) 1 Tab Tb, 1 TAB PO BID for 5 Days, #10 TAB Prov:ELÍAS CR MD 03/24/25 Reported Medications Trazodone Hcl (Trazodone Hcl) 100 Mg Tab, 1 TAB PO QPM, #30 TAB 1 Refill 03/23/25 [place] Carbonate (LITHIUM CARBONATE) 300 Mg Tb, 1 TAB PO TID, #60 TAB 1 Refill 03/23/25 Information Source: Patient Mode of Arrival: Ambulatory Severity: Moderate Location: Head (Left temporal region) Location of laceration: None Mechanism: Blunt trauma Associated signs and symtoms: None Past Medical History PAST MEDICAL HISTORY: Anxiety, Depression Surgical History: Denies all surgeries FORWARDER OPERATOR History: Denies all FORWARDER OPERATOR Hx Family History Family History: Reviewed,noncontributory to illness, Unknown Social History Smoker: Unknown Alcohol: Unknown Drugs: Unknown Lives In: Home Constitutional: denies: chills, diaphoresis, fatigue, fever, malaise, sweats, weakness, others EENTM: denies: blurred vision, double vision, ear bleeding, ear discharge, ear drainage, ear pain, ear ringing, eye pain, eye redness, hearing loss, mouth pain, mouth swelling, nasal discharge, nose bleeding, nose congestion, nose pain, photophobia, tearing, throat pain, throat swelling, voice changes, others Respiratory: denies: cough, hemoptysis, orthopnea, SOB at rest, shortness of breath, SOB with excertion, stridor, wheezing, others Cardiovascular: denies: chest pain, dizzy spells, diaphoresis, Dyspnea on exertion, edema, irregular heart beat, left arm pain, lightheadedness, palpitations, PND, syncope, others Gastrointestinal: denies: abdomen distended, abdominal pain, blood streaked bowels, constipated, diarrhea, dysphagia, difficulty swallowing, hematemesis, me jaison, nausea, poor appetite, poor fluid intake, rectal bleeding, rectal pain, vomiting, others Genitourinary: denies: abnormal vagina bleeding, burning, dyspareunia, dysuria, flank pain, frequency, hematuria, incontinence, pain, , vagina discharge, urgency, others Neurological: denies: dizziness, fainting, headache, left sided numbness, left sided weakness, numbness, paresthesia, pre-existing deficit, right sided numbness, right sided weakness, seizure, speech problems, tingling, tremors, weakness, others Musculoskeletal: reports: others (Localized TTP to the left temporal area); denies: back pain, gout, joint pain, joint swelling, muscle pain, muscle stiffness, neck pain Integumetry: denies: bruises, change in color, change in hair/nails, dryness, laceration, lesions, lumps, rash, wounds, others Allergic/Immunocompromised: denies: Difficulty Healing, Frequent Infections, Hives, Itching, others Hematologic/Lymphatic: denies: anemia, blood clots, easy bleeding, easy bruising, swollen glands, others Endocrine: denies: excessive hunger, excessive sweating, excessive thirst, excessive urination, flushing, intolerance to cold, intolerance to heat, unexplained weight gain, unexplained weight loss, others Psychiatric: denies: anxiety, bipolar disorder, depression, hopeless, panic disorder, schizophrenia, sleepless, suicidal, others All Other Systems: Reviewed and Negative Physical Exam Exam Comments Normocephalic atraumatic, localized TTP to the left temporal area General Appearance: No Apparent Distress, Normal HEENT: Normal ENT Inspection, Pharynx Normal, TMs Normal Neck: Full Range of Motion, Non-Tender, Normal, Normal Inspection Respiratory: Chest Non-Tender, Lungs Clear, No Accessory Muscle Use, No Respiratory Distress, Normal Breath Sounds Cardiovascular: No Edema, No JVD, No Murmur, No Gallop, Normal Peripheral Pulses, Regular Rate/Rhythm Breast Exam: Deferred Gastrointestinal: No Organomegaly, Non Tender, No Pulsatile Mass, Normal Bowel Sounds, Soft Genitalia: Deferred Pelvic: Deferred Rectal: Deferred Extremities: No calf tenderness, Normal capillary refill, Normal inspection, Normal range of motion, Non-tender, No pedal edema Musculoskeletal : Apperance: Normal Neurologic: Alert, 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 Was a procedure done?: No X-Ray, Labs, Meds, VS Vital Signs Date Time Temp Pulse Resp B/P (MAP) Pulse Ox O2 Delivery O2 Flow Rate FiO2 07/10/25 07:44 97.0 85 18 133/86 98 97.0 X-Ray, Labs, Meds, VS Comment 25-year-old female presents to the ER with no prior MHx associated with a chief complaint of a head injury. Patient arrives alert and oriented, ABC's intact, afebrile, vital signs stable, saturating well in room air Diagnostic imaging ordered by me and results interpreted by radiology : Head CT The following differential diagnoses were considered for this patient; subdural hematoma, subarachnoid hemorrhage, epidural hematoma, intraparenchymal bleed, herniation, skull fracture. The patient had a computed tomography of their head without any evidence of acute intracranial abnormality as per radiology. The patient is neurologically intact by exam and is able to ambulate without difficulty. A complete examination does not reveal any other related injury at this time. The patient is not currently utilizing any anticoagulants. The patient is advised to use tylenol as needed for pain. The patient is instructed to follow up their primary care physician as needed or return to ER if vomiting or worsening headache occurs. The patient was counseled in regards to the diagnosis and management of the condition and verbalized understanding of this. On reevaluation, patient had symptomatic improvement. Patient is stable for discharge at this time. External notes reviewed. Test results and diagnostic imaging interpreted. All diagnostic findings, discharge care, education and instructions provided Follow-up with PCP in 2 to 3 days Patient verbalized understanding and agreed to treatment plan Vital signs stable, afebrile, no acute distress noted Patient ambulatory with strong steady gait Advised to return precautions for any new or worsening symptoms, return to ER immediately for re-evaluation Patient is aware that the purpose of this visit was for an acute medical emergency requiring emergent stabilization. Chronic conditions, including malignancies have not been ruled out. Patient is instructed to follow up with PCP as directed and discharge instructions for continued care and workup. If unable to arrange follow-up, patient is to return to the emergency department for reassessment. Patient (parent or legal guardian if applicable) was given verbal and written discharge instructions and acknowledges understanding. Additional MDM Review of External, Non-ED records: External records reviewed. Discussion with independent historian (EMS, family) history obtained from the patient/parents (if applicable) at bedside Chronic conditions affecting care: None Social determinants of health affecting care: None Consideration of admission (observation or admission): I considered escalation of care to admission for this patient, however given the reassuring workup, the patient is safe for outpatient management. Discussion with the Radiology: No Tests considered but not performed: Prescription medication considered but not given: 12 lead EKG interpretation: Time of 1ST Reevaluation: 08:45 Reevaluation 1ST: Unchanged Patient Education/Counseling: Diagnosis, Treatment, Prognosis Family Education/Counseling: No Family Present Departure 1 Departure Time of Disposition: 09:21 Impression: Primary Impression: Blunt head trauma Qualified Codes: S09.8XXA - Other specified injuries of head, initial encounter Disposition: HOME / SELF CARE / HOMELESS Condition: Stable Discharged With: Self Critical Care Note Critical Care Time?: No Stability Stability form required: No I personally scribed for TRAVIS ELLSWORTH NP ([email or web address]) on 07/10/25 at 08:21. Electronically submitted by Sanchez MetcalfNIDIAANCERA). I personally scribed for TRAVIS ELLSWORTH NP ([email or web address]) on 07/10/25 at 08:21. Electronically submitted by Sanchez Naranoj ([email or web address]). TRAVIS ELLSWORTH NP Jul 10, 2025 08:21
--- NOTE | 2025-07-10 09:20 | DVH ---
EXAM: CT HEAD WITHOUT CONTRAST INDICATION: Head Trauma TECHNIQUE: CT of the head without intravenous contrast. Coronal and sagittal reformatted images are submitted. Radiation Dose : 1. Head: CT Dose: CTDI volume is 53.76 mGy. Dose-length product is 1186.23 mGy*cm The dose indicators for CT are the volume Computed Tomography (CT) Dose Index (CTDIvol) and the Dose Length Product (DLP), and are measured in units of mGy and mGy-cm, respectively. These indicators are not patient dose, but values generated from the CT scanner acquisition factors. The report includes radiation exposure data for exposures received during this examination. All CT scans at this medical facility are performed using dose modulation techniques as appropriate to a performed exam including the following: Automated exposure control was utilized; adjustment of the MA and/or KV according to patient size; and use of iterative reconstruction technique. COMPARISON: CT HEAD WITHOUT CONTRAST on DOS: 03/23/25 FINDINGS: There is no evidence of acute intracranial hemorrhage, extra-axial collection, mass effect, midline shift, herniation or hydrocephalus. The ventricles, sulci and cisterns are age appropriate. The gonzales-white differentiation is intact. The visualized paranasal sinuses and mastoid air cells are clear. No depressed calvarial fracture. The surrounding soft tissues are unremarkable. IMPRESSION: 1. No acute intracranial abnormality.
[2025-07-10 09:29] VITALS: BP 137/72; PULSE 78; RESP 16; TEMP 98.4; O2SAT 97
== END 2025-07-10 09:31 | disposition home or self-care (01) ==
LOC: ER 07:41
DX: S09.90XA Unspecified injury of head, initial encounter (principal); F32.A Depression, unspecified; F41.9 Anxiety disorder, unspecified; F17.210 Nicotine dependence, cigarettes, uncomplicated; Z79.899 Other long term (current) drug therapy; X58.XXXA Exposure to other specified factors, initial encounter; Y93.44 Activity, trampolining; Y92.89 Other specified places as the place of occurrence of the external cause; Y99.8 Other external cause status
CPT/HCPCS: 70450

== ENCOUNTER 2025-08-24 22:58 | Emergency (ER) | payer MEDICAID ==
[~2025-08-24] VITALS: Ht 162.6 cm; Wt 53.6 kg
[2025-08-24 23:14] VITALS: BP 128/74; RESP 20; TEMP 97; O2SAT 100
[2025-08-24 23:35] LABS: Hematocrit 41.9 % (36.0-46.0); Hemoglobin 14.3 g/dL (12.2-16.2); Mean Corpuscular Hemoglobin 28.8 pg (28.0-32.0); Mean Corpuscular Volume 84.6 fL (80.0-100.0); Nucleated Red Blood Cells % 0.1 %
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
[2025-08-24 23:50] LABS: Alanine Aminotransferase 13 U/L (7-40); Alkaline Phosphatase 76 U/L (46-116); Anion Gap 12 (5-15); BUN/Creatinine Ratio 8.0 (10.0-20.0); Calcium 10.2 mg/dL (8.7-10.4); Carbon Dioxide 22 mmol/L (20-31); Chloride 107 mmol/L (98-107); Glucose 84 mg/dL (74-106); Potassium 4.3 mmol/L (3.5-5.1); Sodium 141 mmol/L (136-145); Total Protein 7.9 g/dL (5.7-8.2)
[2025-08-24 23:51] LABS: Albumin 4.8 g/dL (3.2-4.8); Bilirubin, Total 0.9 mg/dL (0.2-1.0); Blood Urea Nitrogen 8 mg/dL (9-23)
--- NOTE | 2025-08-25 01:04 | DVH ---
CHEST RADIOGRAPH INDICATION: cp TECHNIQUE: Single frontal view of the chest was obtained COMPARISON: XY CHEST PORTABLE on DOS: 03/23/25 FINDINGS: Lungs and pleural spaces are clear. Cardiac silhouette and pernell are within normal limits. Bones and soft tissues demonstrate no significant abnormality. IMPRESSION: No acute disease.
[2025-08-25 01:33] VITALS: PULSE 56
--- NOTE | 2025-08-25 01:35 | ECG ---
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
--- NOTE | 2025-08-27 12:17 | ECG ---
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
== END 2025-08-25 05:05 | disposition home or self-care (01) ==
LOC: ER 22:58
DX: R07.89 Other chest pain (principal); F14.10 Cocaine abuse, uncomplicated; F10.10 Alcohol abuse, uncomplicated; F41.9 Anxiety disorder, unspecified; F32.A Depression, unspecified; Z79.899 Other long term (current) drug therapy
CPT/HCPCS: 36415; 71045; 80053; 84484; 85025; 93005